=== PATIENT | female | born 1980 | race Caucasian/White ===

== ENCOUNTER 2021-09-05 13:43 | Outpatient (CLI) | payer OTHER, SELFPAY ==
[2021-09-05 14:17] LABS: Hematocrit 42.2 % (37.0-47.0); Hemoglobin 13.8 g/dL (12.0-15.0); Mean Corpuscular HGB Conc 32.7 g/dl (32-36); Mean Corpuscular Hemoglobin 30.1 pg (26-34); Mean Corpuscular Volume 91.9 fl (80-100); Mean Platelet Volume 10.5 fl (7.4-10.4); Platelet Count Result 288 k/mm3 (150-375); Red Blood Count 4.59 M/mm3 (4.2-5.4); Red Cell Distribution Width 12.9 % (11.5-14.5); White Blood Count 9.5 K/mm3 (4.5-10.0)
[2021-09-05 14:47] LABS: Beta HCG Quantitative < 2.39 mIU/ML
[2021-09-05 14:59] LABS: Vitamin D 25 Hydroxy 23.7 ng/mL
== END 2021-09-05 13:44 | disposition home or self-care (01) ==
PROVIDERS: PCP Family Medicine Sports Medicine; Visit Provider Obstetrics & Gynecology
DX: N92.6 Irregular menstruation, unspecified (principal); F32.81 Premenstrual dysphoric disorder
CPT/HCPCS: 36415; 82306; 84702; 85027

== ENCOUNTER → 2022-03-22 08:38 | Outpatient (CLI) | payer OTHER, SELFPAY ==
--- NOTE | ~2022-03-22 | MM_ITS ---
EXAMINATION: MM screening giovanni BI w chepe HISTORY: Screening mammogram TECHNIQUE: Craniocaudal and mediolateral oblique 3-D tomosynthesis images were obtained and synthetic 2-D images were generated. CAD analysis was submitted and interpreted. COMPARISON: No prior mammogram is available for comparison at this institution. BREAST PARENCHYMAL COMPOSITION: There are scattered areas of fibroglandular density. FINDINGS: RIGHT BREAST: There is a mass in the middle third of the upper-outer quadrant breast 3 cm from the ni pple. LEFT BREAST: An asymmetry is present in the posterior third of the breast in line with the nipple axi s on the mediolateral oblique view. IMPRESSION: 1. Bilateral breast findings as detailed above. 2. Additional mammographic views and possible breast ultrasound are recommended. BI-RADS Category 0: Incomplete: Needs additional imaging evaluation. Reviewed, dictated and finalized at location A. IMPRESSION: 1. Bilateral breast findings as detailed above. 2. Additional mammographic views and possible breast ultrasound are recommended . BI-RADS Category 0: Incomplete: Needs additional imaging evaluation.
== END ==
PROVIDERS: PCP Family Medicine Sports Medicine
DX: Z12.31 Encounter for screening mammogram for malignant neoplasm of breast (principal); R92.8 Other abnormal and inconclusive findings on diagnostic imaging of breast
CPT/HCPCS: 77063; 77067

== ENCOUNTER → 2022-06-02 08:58 | Outpatient (CLI) | payer OTHER, SELFPAY ==
--- NOTE | ~2022-06-02 | MMUS_ITS ---
EXAMINATION: MM diagnostic giovanni BI w chepe, US breast RT limited HISTORY: Right breast mass and left breast asymmetry on screening mammogram TECHNIQUE: Additional 3-D tomosynthesis images of the breasts were performed and synthetic 2-D images were generated. CAD analysis was submitted and interpreted. High resolution limited right breast ult rasound was performed. COMPARISON: 03/22/2022 FINDINGS: MAMMOGRAPHIC FINDINGS: The left breast asymmetry described on screening mammogram has a normal fibroglandular appearance wit h spot compression. There is a 1.6 x 0.5 cm oval, obscured, equal density mass in the middle third of the outer breast at the 9:00 location 4 cm from the nipple. ULTRASOUND: There is a 1.1 x 0.4 cm oval, circumscribed, parallel, hypoechoic mass with no posterior features or internal vascularity at the 9:00 location 3 cm from the nipple. There is a possible 2 mm round, hypoe choic mass with no posterior features or internal vascularity at 8:00 location 5 cm from the nipple. IMPRESSION: 1. Indeterminate right breast mass at the 9:00 location 3 cm from the nipple. Ultrasound-guided biops y is recommended. 2. Possible small cyst at 8:00 location 5 cm from the nipple for which targeted right breast ultrasou nd in six months is recommended. BI-RADS category 4, suspicious findings. Reviewed, dictated and finalized at location A. IN LOOSE END FINDER IMPRESSION: 1. Indeterminate right breast mass at the 9:00 location 3 cm from the nipple. U ltrasound-guided biopsy is recommended. 2. Possible small cyst at 8:00 location 5 cm from the nipple for which targeted right breast ultrasound in six months is recommended. BI-RADS category 4, suspicious findings.
== END ==
PROVIDERS: PCP Family Medicine Sports Medicine
DX: R92.8 Other abnormal and inconclusive findings on diagnostic imaging of breast (principal)
CPT/HCPCS: 76642; 77062; 77066; G0279

== ENCOUNTER → 2022-11-21 14:10 | Outpatient (CLI) | payer OTHER, SELFPAY ==
--- NOTE | ~2022-11-21 | MMUS_ITS ---
EXAMINATION: MM diagnostic giovanni RT w chepe, US breast RT limited HISTORY: Six-month follow-up post benign right breast biopsy and probably benign right breast mass TECHNIQUE: Craniocaudal, mediolateral, and mediolateral oblique 3-D tomosynthesis images of the right breast were performed and synthetic 2-D images were generated. CAD analysis was submitted and interp reted. High resolution limited right breast ultrasound was performed. COMPARISON: 06/02/2022, 03/22/2022 BREAST PARENCHYMAL COMPOSITION: There are scattered areas of fibroglandular density. FINDINGS: MAMMOGRAPHIC FINDINGS: There has been interval biopsy of the previously described mass at the 9:00 location in the right ron ast. No suspicious mass, calcification, or architectural distortion are identified. ULTRASOUND: There is a stable 3 mm round, circumscribed, hypoechoic mass with no posterior features or internal v ascularity at the 8:00 location, 5 cm from the nipple. Biopsy change is noted in the stable right ron ast mass. IMPRESSION: 1. Stable, probably benign sonographically detected right breast mass at 8:00 location. 2. Recommend 6 month follow-up targeted right breast ultrasound. Patient will also be due for screeni ng mammography at that time. BI-RADS category 3, probably benign findings. Reviewed, dictated and finalized at location A. IMPRESSION: 1. Stable, probably benign sonographically detected right breast mass at 8:00 l ocation. 2. Recommend 6 month follow-up targeted right breast ultrasound. Patient will a lso be due for screening mammography at that time. BI-RADS category 3, probably benign findings.
== END ==
DX: R92.8 Other abnormal and inconclusive findings on diagnostic imaging of breast (principal)
CPT/HCPCS: 76642; 77061; 77065; G0279

== ENCOUNTER → 2023-06-30 09:25 | Outpatient (CLI) | payer OTHER, SELFPAY ==
--- NOTE | ~2023-06-30 | MMUS_ITS ---
EXAMINATION: MM diagnostic giovanni BI w chepe, US breast RT limited HISTORY: Six-month follow-up of stable probably benign right 8:00 3 mm circumscribed hypoechoic mass 5 cm from nipple TECHNIQUE: ML, MLO and CC 3-D tomosynthesis images of both breasts were performed and synthetic 2-D i mages were generated. CAD analysis was submitted and interpreted. High resolution targeted right surya st 8:00 breast ultrasound was performed. COMPARISON: 11/21/2022 diagnostic right mammogram and limited right breast ultrasound / bilateral screening mammogram BREAST PARENCHYMAL COMPOSITION: There are scattered areas of fibroglandular density. FINDINGS: MAMMOGRAPHIC FINDINGS: Stable circumscribed small mass with biopsy marker, anterior outer mid right breast. No suspicious mass or architectural distortion, malignant calcification, skin thickening or retractio n or significant new or developing density of either breast is evident. Occasional bilateral benign c alcifications. ULTRASOUND: Targeted ultrasound at 8:00 5 cm from the nipple reveals no residual mass or any suspicious shadowing , cyst or other significant sonographic abnormality. IMPRESSION: 1. Benign findings 2. Routine mammographic screening is recommended BI-RADS Category 2: Benign finding(s). Reviewed, dictated and finalized at location A. SSIONS COORDINATOR IMPRESSION: 1. Benign findings 2. Routine mammographic screening is recommended BI-RADS Category 2: Benign finding(s).
== END ==
DX: N63.10 Unspecified lump in the right breast, unspecified quadrant (principal); R92.8 Other abnormal and inconclusive findings on diagnostic imaging of breast
CPT/HCPCS: 76642; 77062; 77066; G0279

== ENCOUNTER 2024-10-21 11:59 | Outpatient (CLI) | payer OTHER, SELFPAY ==
--- NOTE | ~2024-10-21 | MM_ITS ---
EXAMINATION: MM screening giovanni BI w chepe HISTORY: Screening TECHNIQUE: Craniocaudal and mediolateral oblique 3-D tomosynthesis images were obtained and synthetic 2-D images were generated. CAD analysis was submitted and interpreted. COMPARISON: 03/22/2022 BREAST PARENCHYMAL COMPOSITION: Not dense: There are scattered areas of fibroglandular density. FINDINGS: There is no evidence of suspicious mass, calcification, or architectural distortion to sugg est malignancy in either breast. There has been no suspicious interval change. IMPRESSION: 1. No mammographic evidence of malignancy. 2. Recommend routine screening mammography in one year. BI-RADS Category 1: Negative Reviewed, dictated and finalized at location B.
== END 2024-10-21 12:00 | disposition home or self-care (01) ==
LOC: MICIMG 12:00
DX: Z12.31 Encounter for screening mammogram for malignant neoplasm of breast (principal)
CPT/HCPCS: 77063; 77067